=== PATIENT | male | born 1965 | race Caucasian/White ===

== ENCOUNTER 2017-11-21 13:29 | Emergency (ER) | payer SELFPAY | END 2017-11-21 14:39 | disposition home or self-care (01) | LOC: NAV ERS 13:29 | DX: F10.129 Alcohol abuse with intoxication, unspecified (principal); Z79.899 Other long term (current) drug therapy; V47.5XXA Car driver injured in collision with fixed or stationary object in traffic accident, initial encounter | CPT/HCPCS: 99283 ==

== ENCOUNTER 2018-01-26 22:14 | Emergency (ER) | payer SELFPAY ==
[2018-01-26] MEDS ORDERED: Levofloxacin 500 mg/D5W 100 ml Premix Bag ONE (22:41)
[2018-01-26] MEDS ORDERED: Piperacillin/Tazobactam 3.375 GM VIAL ONE (22:41)
[2018-01-26] MEDS ORDERED: Sodium Chloride 0.9% 100 ML ONE (22:42)
[2018-01-26 22:43] LABS: #Basophils 0.1 thou/uL (0.0-0.2); #Eosinphils 0.2 thou/uL (0.0-0.7); #Lymphocytes 2.1 thou/uL (1.20-3.40); #Monocytes 0.8 thou/uL (0.11-0.59); %Basophils 1.4 % (0.0-1.0); %Eosinophils 2.1 % (0.0-10.0); %Lymphocytes 20.8 % (21.0-51.0); %Monocytes 7.7 % (0.0-10.0); %Neutrophils 68.1 % (42.0-75.0); Hemoglobin 14.2 g/dL (14.0-18.0); Mean Corpuscular HGB CONC 33.6 g/dL (32.0-36.0); Mean Corpuscular Hemoglobin 32.2 pg (27.0-31.0); Mean Corpuscular Volume 95.7 fL (78.0-98.0); Mean Platelet Volume 6.8 fL (7.4-10.4); Platelet Count 274 thou/uL (130-400); RBC Distribution Width 12.4 % (11.5-14.5); White Blood Cell (WBC) Count 10.3 thou/uL (4.8-10.8)
[2018-01-26 22:48] LABS: Actual Bicarbonate (HCO3a) 20.4 mEq/L (22-28); Base Excess (BEa) -5.5 mEq/L (-2.0 to +3.0); pH, Arterial 7.31 (7.35-7.45)
[2018-01-26 22:49] LABS: Hemoglobin (Hb) 13.2 g/dL (14.0-18.0)
[2018-01-26 22:50] LABS: ALT (SGPT) 23 U/L (8-55); AST (SGOT) 51 U/L (5-34); Alkaline Phosphatase 111 U/L (40-150); Anion Gap 18 mmol/L (10-20); BUN (Urea Nitrogen) 16 mg/dL (8.4-25.7); Bilirubin, Total 1.6 mg/dL (0.2-1.2); CK (CPK) 76 U/L (30-200); Calc. Creatinine Clearance 0 mL/min (70-130); Calcium 9.1 mg/dL (7.8-10.44); Carbon Dioxide 17 mmol/L (22-29); Chloride 99 mmol/L (98-107); Estimated GFR-MDRD 78; Globulin 5.3 g/dL (2.4-3.5); Glucose 181 mg/dL (70-105); Potassium 4.1 mmol/L (3.5-5.1); Protein, Total 8.3 g/dL (6.0-8.3); Sodium 130 mmol/L (136-145)
[2018-01-26 22:52] LABS: CKMB 2.5 ng/mL (0-6.6); Troponin I 0.236 ng/mL (< 0.028)
--- NOTE | 2018-01-26 22:53 | RAD ---
PORTABLE AP CHEST X-RAY: 01/26/2018 HISTORY: Severe respiratory distress. Dyspnea. Diagnosis of pneumonia. COMPARISON: 01/12/2018 FINDINGS: The are bilateral perihilar alveolar opacities, which may be related to either pulmonary edema or an infectious process. There is evidence of a small left pleural effusion with a probable small right p leural effusion. The cardiac silhouette is mostly obscured, due to technique and perihilar opacities . IMPRESSION: 1. Alveolar opacities bilaterally, predominantly in a perihilar distribution, which may be related t o either pulmonary edema or an infectious process. Followup to resolution is recommended. 2. Small left pleural effusion with probable small right pleural effusion. POS: [facility]
[2018-01-26] MEDS ORDERED: Aspirin 300 MG Suppository ONE (22:56)
[2018-01-26 23:04] LABS: Bilirubin Negative (Negative); Blood, Urine Trace (Negative); Clarity Hazy (Clear); Glucose, Urine (Dipstick) Negative (Negative); Leukocyte Negative (Negative); Nitrite Negative (Negative); Protein, Urine (Dipstick) 100 mg/dL (Neg-Trace); Specific Gravity, Urine 1.015 (1.005-1.030); pH, Urine 5.5 (5.0-9.0)
[2018-01-26 23:06] LABS: Bacteria/HPF None Seen HPF (None Seen); RBC/HPF 0-3 HPF (0-3); Squamous Epithelial None Seen HPF (0-3); WBC/HPF None Seen HPF (0-3)
[2018-01-26] MEDS ORDERED: Sodium Chloride 0.9% 1,000 ML ONE (23:23)
--- NOTE | 2018-01-27 09:23 | ER ---
EMERGENCY ROOM ADDENDUM DATE OF SERVICE: 01/26/2018 Please refer to the patient's electronic medical record for further details of his visit. In summary, the patient presents via EMS with profound respiratory distress. He arrived on CPAP mask with obviously labored breathing and somnolence on exam. He was arousable to verbal and tactile stimulus. Preparations were made immediately for possible intubation, but during this time, the patient's mentation improved somewhat to the point that he was awake and alert, and able to answer questions. He indicated that he did not want to be intubated at this point, and thought that he could continue breathing on his own at least for now. He was allowed to do this, but monitored quite closely. During his stay, arterial blood gas showed adequate oxygenation with good CO2 exchange. His respiratory effort continued to improve, and his initial diaphoresis resolved. His initial tachycardia also improved. On recheck, the patient was able to speak in 3-4 word sentences with improvement in his respiratory effort. Evaluation reveals evidence of bilateral volume overload versus infectious process. The patient was covered with antibiotics. Also, his troponin was noted to be somewhat elevated and he was given rectal aspirin so as to avoid taking him off CPAP. IV fluids were given to support his tachycardia and presumed sepsis, though the rate was decreased once the patient's condition improved. I discussed this case with Dr. Steve at [facility], who accepts transfer. I elected to fly the patient via air transport due to the emergent nature of his condition. He remained in guarded condition, but is stable for transport at this time. He is mentating well, knows what year it is, and responds to questions appropriately at this point. He continues to have some respiratory distress, but is significantly improved since arrival. ADRIÁN
== END 2018-01-26 23:40 | disposition short-term general hospital (02) ==
LOC: NAV ERS 22:14
DX: A41.9 Sepsis, unspecified organism (principal); J96.90 Respiratory failure, unspecified, unspecified whether with hypoxia or hypercapnia
CPT/HCPCS: 51702; 71045; 80053; 81003; 81015; 82553; 82805; 83605; 83880; 84484; 85025; 87086; 93005; 94660; 96365; J1956; J2543; J7050

== ENCOUNTER 2018-09-21 18:31 | Emergency (ER) | payer SELFPAY ==
[~2018-09-21 18:31] MED LIST: Gadobenate Dimeglumine 529 MG/1 ML (20ML VIAL) ONE
[2018-09-21 19:27] LABS: Hemoglobin 12.2 g/dL (14.0-18.0); Mean Corpuscular HGB CONC 33.4 g/dL (32.0-36.0); Mean Corpuscular Volume 95.7 fL (78.0-98.0); Mean Platelet Volume 5.8 fL (7.4-10.4); Platelet Count 92 thou/uL (130-400); RBC Distribution Width 13.5 % (11.5-14.5); Red Blood Cell (RBC) Count 3.82 mill/uL (4.70-6.10)
[2018-09-21 19:36] LABS: ALT (SGPT) 25 U/L (8-55); AST (SGOT) 54 U/L (5-34); Albumin 3.9 g/dL (3.5-5.0); Alkaline Phosphatase 117 U/L (40-150); Anion Gap 16 mmol/L (10-20); BUN (Urea Nitrogen) 13 mg/dL (8.4-25.7); CK (CPK) 77 U/L (30-200); Calc. Creatinine Clearance 0 mL/min (70-130); Calcium 9.5 mg/dL (7.8-10.44); Carbon Dioxide 23 mmol/L (22-29); Chloride 105 mmol/L (98-107); Estimated GFR-MDRD 58; Globulin 3.9 g/dL (2.4-3.5); Glucose 100 mg/dL (70-105); Potassium 3.5 mmol/L (3.5-5.1); Protein, Total 7.8 g/dL (6.0-8.3); Sodium 140 mmol/L (136-145)
[2018-09-21 19:37] LABS: Band 1 % (5-11); CKMB 1.4 ng/mL (0-6.6); Eosinophils 5 % (0-10); Lymphocytes 23 % (21-51); MDiff Complete? YES; Monocytes 7 % (0-10); Neutrophil 64 % (42-75); Platelet Morphology Comment Appears Decreased; RBC Morphology Normal
[2018-09-21] MEDS ORDERED: Furosemide 40 MG/4 ML VIAL ONE (19:39)
--- NOTE | 2018-09-21 20:01 | RAD ---
PORTABLE CHEST: History: Chest pain Comparison: 02-20-18 FINDINGS: Heart size appears slightly enlarged. There are post op sternotomy changes. Lungs are clear of any in filtrative process. No signs of failure. IMPRESSION: Mild cardiomegaly. POS: [facility]
[2018-09-21 21:50] LABS: Troponin I 0.014 ng/mL (< 0.028)
--- NOTE | 2018-09-21 22:40 | CT ---
CT ANGIOGRAM THORAX WITH IV CONTRAST AND 3D RECONSTRUCTIONS: Date: 09-21-18 History: Dyspnea. Increased D-Dimer. Swollen legs. Comparison: None available. FINDINGS: There is suboptimal timing of the contrast bolus which limits evaluation for pulmonary emboli involvi ng the segmental and subsegmental arteries. There are no filling defects in the central pulmonary art eries but pulmonary emboli involving the segmental or subsegmental pulmonary arteries cannot be exclu ded. There is questionable filling defect in the right lower lobe pulmonary arteries, again, there is inadequate contrast opacification to determine whether filling defects are definitely present. Prominent coronary artery calcifications are present. Aortic valve replacement is noted. The heart is enlarged. Small amount of fluid is seen within the mid esophagus which could be related to gastroesophageal ref lux. There is no evidence of lymphadenopathy. Thoracic aorta is normal in caliber without evidence of an aortic dissection. Visualized upper abdomen has a normal CT appearance. IMPRESSION: 1. Suboptimal evaluation for pulmonary emboli involving the segmental or subsegmental pulmonary arter ies due to suboptimal timing of the contrast bolus. As a result, pulmonary emboli at these levels can not be excluded. 2. Thoracic aorta is normal in caliber without evidence of an aortic dissection. 3. Prominent coronary artery calcifications. 4. Cardiomegaly. POS: [facility]
== END 2018-09-21 22:20 | disposition home or self-care (01) ==
LOC: NAV ERS 18:31
DX: I11.0 Hypertensive heart disease with heart failure (principal); I50.9 Heart failure, unspecified; R60.9 Edema, unspecified; E11.9 Type 2 diabetes mellitus without complications; F41.9 Anxiety disorder, unspecified; Z79.82 Long term (current) use of aspirin; Z79.899 Other long term (current) drug therapy
CPT/HCPCS: 36415; 71045; 71275; 80053; 82550; 82553; 83880; 84484; 85025; 85379; 93005; 94760; 96374; A9577; J1940

== ENCOUNTER 2018-12-14 08:40 | Emergency (ER) | payer SELFPAY ==
[2018-12-14 09:47] LABS: ALT (SGPT) 22 U/L (8-55); AST (SGOT) 45 U/L (5-34); Albumin 3.8 g/dL (3.5-5.0); Alkaline Phosphatase 95 U/L (40-150); Anion Gap 15 mmol/L (10-20); BUN (Urea Nitrogen) 8 mg/dL (8.4-25.7); Bilirubin, Total 0.7 mg/dL (0.2-1.2); Calc. Creatinine Clearance 0 mL/min (70-130); Calcium 8.6 mg/dL (7.8-10.44); Carbon Dioxide 24 mmol/L (22-29); Chloride 104 mmol/L (98-107); Estimated GFR-MDRD 68; Globulin 3.6 g/dL (2.4-3.5); Glucose 120 mg/dL (70-105); Potassium 3.8 mmol/L (3.5-5.1); Protein, Total 7.4 g/dL (6.0-8.3); Sodium 139 mmol/L (136-145)
[2018-12-14 09:48] LABS: Alcohol Less than 10 mg/dL (Less than 10); Salicylate Less than 8.0 mg/dL (15.0-30.0)
[2018-12-14 10:04] LABS: #Basophils 0.1 thou/uL (0.0-0.2); #Eosinphils 0.5 thou/uL (0.0-0.7); #Monocytes 0.5 thou/uL (0.11-0.59); #Neutrophils 3.2 thou/uL (1.40-6.50); %Basophils 1.6 % (0.0-1.0); %Eosinophils 9.8 % (0.0-10.0); %Monocytes 9.6 % (0.0-10.0); %Neutrophils 60.1 % (42.0-75.0); Hemoglobin 12.9 g/dL (14.0-18.0); Mean Corpuscular HGB CONC 34.4 g/dL (32.0-36.0); Mean Corpuscular Hemoglobin 31.7 pg (27.0-31.0); Mean Corpuscular Volume 92.1 fL (78.0-98.0); Mean Platelet Volume 6.9 fL (7.4-10.4); Platelet Count 116 thou/uL (130-400); RBC Distribution Width 11.6 % (11.5-14.5); Red Blood Cell (RBC) Count 4.07 mill/uL (4.70-6.10); White Blood Cell (WBC) Count 5.3 thou/uL (4.8-10.8)
[2018-12-14 10:05] LABS: Anisocytosis SLIGHT = 6-15 cells (100X) (0-5/hpf); Hypochromia SLIGHT = 6-15 cells (100X) (0-5/hpf); MDiff Complete? YES; Platelet Morphology Comment Appears Adequate
[2018-12-14 10:06] LABS: Acetaminophen Less than 6.0 mcg/mL (10.0-30.0)
== END 2018-12-14 15:11 | disposition home or self-care (01) ==
LOC: NAV ERS 08:40
DX: T42.6X1A Poisoning by other antiepileptic and sedative-hypnotic drugs, accidental (unintentional), initial encounter (principal); F41.9 Anxiety disorder, unspecified; E11.9 Type 2 diabetes mellitus without complications; I10 Essential (primary) hypertension; Z87.01 Personal history of pneumonia (recurrent); Z79.82 Long term (current) use of aspirin; Z79.899 Other long term (current) drug therapy
CPT/HCPCS: 80053; 80307; 85025

== ENCOUNTER 2019-03-23 08:27 | Emergency (ER) | payer SELFPAY ==
[2019-03-23] MEDS ORDERED: Ondansetron PF 4 MG/2 ML Vial ONE ×2 (08:56→09:44)
[2019-03-23 09:05] LABS: #Basophils 0.1 thou/uL (0.0-0.2); #Eosinphils 0.5 thou/uL (0.0-0.7); #Lymphocytes 1.2 thou/uL (1.20-3.40); #Monocytes 0.6 thou/uL (0.11-0.59); #Neutrophils 3.7 thou/uL (1.40-6.50); %Basophils 2.1 % (0.0-1.0); %Eosinophils 7.7 % (0.0-10.0); %Lymphocytes 20.1 % (21.0-51.0); %Monocytes 9.1 % (0.0-10.0); Hemoglobin 14.3 g/dL (14.0-18.0); Mean Corpuscular HGB CONC 34.3 g/dL (32.0-36.0); Mean Corpuscular Hemoglobin 31.4 pg (27.0-31.0); Mean Corpuscular Volume 91.5 fL (78.0-98.0); Mean Platelet Volume 6.2 fL (7.4-10.4); Platelet Count 132 thou/uL (130-400); RBC Distribution Width 12.6 % (11.5-14.5); Red Blood Cell (RBC) Count 4.54 mill/uL (4.70-6.10); White Blood Cell (WBC) Count 6.1 thou/uL (4.8-10.8)
--- NOTE | 2019-03-23 09:15 | RAD ---
Portable chest: HISTORY: Hypertension COMPARISON: 09/21/2018 FINDINGS: Lung sebastian are clear. Heart size upper normal and stable. Postop sternotomy change again n oted. Vascularity is normal. Visualized osseous structures unremarkable. IMPRESSION: No acute finding
[2019-03-23 09:18] LABS: ALT (SGPT) 30 U/L (8-55); AST (SGOT) 49 U/L (5-34); Alkaline Phosphatase 156 U/L (40-150); Anion Gap 19 mmol/L (10-20); BUN (Urea Nitrogen) 5 mg/dL (8.4-25.7); Bilirubin, Total 0.7 mg/dL (0.2-1.2); Calc. Creatinine Clearance 0 mL/min (70-130); Calcium 9.2 mg/dL (7.8-10.44); Carbon Dioxide 21 mmol/L (22-29); Chloride 101 mmol/L (98-107); Estimated GFR-MDRD 53; Globulin 4.2 g/dL (2.4-3.5); Glucose 276 mg/dL (70-105); Magnesium 1.6 mg/dL (1.6-2.6); Protein, Total 8.2 g/dL (6.0-8.3); Sodium 137 mmol/L (136-145)
[2019-03-23] MEDS ORDERED: Sodium Chloride 0.9% 0 ML ONE (09:44)
[2019-03-23] MEDS ORDERED: Sodium Chloride 0.9% 250 ML 250 ML ONE (09:45)
== END 2019-03-23 10:41 | disposition home or self-care (01) ==
LOC: NAV ERS 08:27
DX: E86.0 Dehydration (principal); E11.65 Type 2 diabetes mellitus with hyperglycemia; I10 Essential (primary) hypertension; R11.0 Nausea; F41.9 Anxiety disorder, unspecified; Z79.82 Long term (current) use of aspirin; Z79.899 Other long term (current) drug therapy
CPT/HCPCS: 71045; 80053; 83735; 83880; 84484; 85025; 93005; 96374; 96376; J2405; J7050

== ENCOUNTER 2019-06-10 13:30 | Emergency (ER) | payer SELFPAY ==
--- NOTE | 2019-06-10 14:22 | RAD ---
EXAM: Right foot: 2 views INDICATIONS: Foot pain right great toe pain COMPARISON: None. FINDINGS: Enthesophytes from the calcaneus. Mild degenerative change at the intertarsal joints and ta rsometatarsal joints. Mild DJD at the first MTP joint. Question periosteal reaction involving the proximal phalanx of the fifth toe. This is not well evalua rosa. Recommend clinical correlation regarding pain at this site. Otherwise no acute process.. IMPRESSION: Question periosteal reaction involving proximal phalanx of fifth toe. Otherwise no acute process.
[2019-06-10 14:44] LABS: ALT (SGPT) 23 U/L (8-55); AST (SGOT) 26 U/L (5-34); Albumin 3.4 g/dL (3.5-5.0); Alkaline Phosphatase 78 U/L (40-110); Anion Gap 17 mmol/L (10-20); BUN (Urea Nitrogen) 14 mg/dL (8.4-25.7); Bilirubin, Total 1.1 mg/dL (0.2-1.2); Calc. Creatinine Clearance 0 mL/min (70-130); Calcium 8.3 mg/dL (7.8-10.44); Carbon Dioxide 18 mmol/L (22-29); Chloride 98 mmol/L (98-107); Estimated GFR-MDRD 63; Globulin 4.3 g/dL (2.4-3.5); Glucose 400 mg/dL (70-105); Hemoglobin 13.9 g/dL (14.0-18.0); Mean Corpuscular HGB CONC 33.9 g/dL (32.0-36.0); Mean Corpuscular Hemoglobin 31.8 pg (27.0-31.0); Mean Corpuscular Volume 93.8 fL (78.0-98.0); Mean Platelet Volume 7.6 fL (7.4-10.4); Platelet Count 120 thou/uL (130-400); Potassium 3.6 mmol/L (3.5-5.1); Protein, Total 7.7 g/dL (6.0-8.3); RBC Distribution Width 11.7 % (11.5-14.5); Red Blood Cell (RBC) Count 4.36 mill/uL (4.70-6.10); Sodium 129 mmol/L (136-145); White Blood Cell (WBC) Count 5.3 thou/uL (4.8-10.8)
[2019-06-10] MEDS ORDERED: Sodium Chloride 0.9% 1,000 ML ONE (14:48)
[2019-06-10 14:54] LABS: Band 3 % (5-11); Eosinophils 4 % (0-10); Lymphocytes 14 % (21-51); MDiff Complete? YES; Monocytes 2 % (0-10); Neutrophil 77 % (42-75); Platelet Morphology Comment Appears Decreased; RBC Morphology Normal
[2019-06-10 16:29] LABS: Bilirubin Negative (Negative); Blood, Urine Negative (Negative); Clarity Clear (Clear); Glucose, Urine (Dipstick) 500 mg/dL (Negative); Leukocyte Negative (Negative); Nitrite Negative (Negative); Protein, Urine (Dipstick) Negative (Neg-Trace); Urobilinogen > or = 8.0 mg/dL (Less than 2)
[2019-06-10] MEDS ORDERED: Piperacillin/Tazobactam 3.375 GM VIAL ONE (16:31)
[2019-06-10] MEDS ORDERED: Sodium Chloride 0.9% 500 ML ONE (16:57)
== END 2019-06-10 17:10 | disposition short-term general hospital (02) ==
LOC: NAV ERS 13:30
DX: E11.69 Type 2 diabetes mellitus with other specified complication (principal); L03.031 Cellulitis of right toe; E11.65 Type 2 diabetes mellitus with hyperglycemia; I10 Essential (primary) hypertension; Z87.01 Personal history of pneumonia (recurrent); Z79.82 Long term (current) use of aspirin
CPT/HCPCS: 36416; 80053; 81003; 83605; 85025; 86140; 87040; 87070; 87077; 87186; 87205; 96361; 96374; 36415-59; J2543; J3370; J7050

== ENCOUNTER 2019-09-20 17:27 | Emergency (ER) | payer SELFPAY ==
[2019-09-20] MEDS ORDERED: Ibuprofen 200 MG TAB ONE (18:05)
[2019-09-20] MEDS ORDERED: Sodium Chloride 0.9% 1,000 ML ONE ×2 (18:28→19:21)
--- NOTE | 2019-09-20 18:44 | RAD ---
2 view chest: [09/20/2019] Comparison:06/08/2019 HISTORY: Intermittent productive cough FINDINGS: Stable heart and mediastinal contours. Stable midline sternotomy wires and mild increased l inear interstitial density. No pneumothorax or pleural fluid. No focal consolidation or alveolar edema. The patient is status post mechanical valve replacement. Stable multilevel degenerative change of the imaged spine. IMPRESSION: Stable appearance of the chest.
[2019-09-20 18:45] LABS: #Basophils 0.1 thou/uL (0.0-0.2); #Eosinphils 0.1 thou/uL (0.0-0.7); #Lymphocytes 1.3 thou/uL (1.20-3.40); #Monocytes 1.5 thou/uL (0.11-0.59); #Neutrophils 7.7 thou/uL (1.40-6.50); %Basophils 0.6 % (0.0-1.0); %Lymphocytes 11.9 % (21.0-51.0); %Monocytes 14.3 % (0.0-10.0); %Neutrophils 72.3 % (42.0-75.0); Hemoglobin 13.6 g/dL (14.0-18.0); Mean Corpuscular HGB CONC 34.4 g/dL (32.0-36.0); Mean Corpuscular Hemoglobin 30.4 pg (27.0-31.0); Mean Corpuscular Volume 88.3 fL (78.0-98.0); Mean Platelet Volume 7.7 fL (7.4-10.4); Platelet Count 214 thou/uL (130-400); Red Blood Cell (RBC) Count 4.47 mill/uL (4.70-6.10); White Blood Cell (WBC) Count 10.7 thou/uL (4.8-10.8)
[2019-09-20 18:46] LABS: ALT (SGPT) 21 U/L (8-55); AST (SGOT) 34 U/L (5-34); Albumin 3.8 g/dL (3.5-5.0); Alkaline Phosphatase 92 U/L (40-110); Anion Gap 16 mmol/L (10-20); BUN (Urea Nitrogen) 12 mg/dL (8.4-25.7); Bilirubin, Total 1.2 mg/dL (0.2-1.2); Calc. Creatinine Clearance 0 mL/min (70-130); Calcium 8.3 mg/dL (7.8-10.44); Carbon Dioxide 20 mmol/L (22-29); Chloride 99 mmol/L (98-107); Estimated GFR-MDRD 64; Globulin 4.1 g/dL (2.4-3.5); Glucose 139 mg/dL (70-105); Lipase 22 U/L (8-78); Potassium 3.8 mmol/L (3.5-5.1); Protein, Total 7.9 g/dL (6.0-8.3); Sodium 131 mmol/L (136-145)
[2019-09-20] MEDS ORDERED: cefTRIAXone\\ROCEPHIN 2 GM VIAL ONE (19:21)
[2019-09-20] MEDS ORDERED: Sodium Chloride 0.9% 100 ML ONE (19:21)
[2019-09-20 20:16] LABS: Bacteria/HPF None Seen HPF (None Seen); Bilirubin Moderate (Negative); Blood, Urine Negative (Negative); Clarity Clear (Clear); Glucose, Urine (Dipstick) Negative (Negative); Leukocyte Negative (Negative); Nitrite Negative (Negative); Protein, Urine (Dipstick) 30 mg/dL (Neg-Trace); RBC/HPF 0-3 HPF (0-3); Squamous Epithelial 0-3 HPF (0-3); WBC/HPF 0-3 HPF (0-3)
[2019-09-20 21:22] LABS: Lactic Acid 0.8 mmol/L (0.5-2.2)
== END 2019-09-20 22:20 | disposition home or self-care (01) ==
LOC: NAV ERS 17:27
DX: J20.9 Acute bronchitis, unspecified (principal); E86.0 Dehydration; H10.33 Unspecified acute conjunctivitis, bilateral; I10 Essential (primary) hypertension; Z87.01 Personal history of pneumonia (recurrent); E11.9 Type 2 diabetes mellitus without complications; F41.9 Anxiety disorder, unspecified; Z79.82 Long term (current) use of aspirin; Z79.4 Long term (current) use of insulin; Z79.899 Other long term (current) drug therapy; Z87.440 Personal history of urinary (tract) infections
CPT/HCPCS: 36415; 71046; 80053; 81003; 81015; 82274; 83605; 83630; 83690; 85025; 87040; 87045; 87046; 87070; 87081; 87205; 87324; 87427; 87430; 87449; 87804; 96361; 96365; J0696; J3490; J7050

== ENCOUNTER 2020-05-01 07:17 | Emergency (ER) | payer SELFPAY ==
[2020-05-01] MEDS ORDERED: Nitroglycerin 0.4 MG TAB (25 Tab Bottle) ONE (07:36)
[2020-05-01] MEDS ORDERED: Acetaminophen 500 MG TAB ONE (07:41)
[2020-05-01] MEDS ORDERED: Morphine 4 MG/ML VIAL ONE (07:43)
[2020-05-01] MEDS ORDERED: Ondansetron PF 4 MG/2 ML Vial ONE (07:50)
[2020-05-01 08:14] LABS: ALT (SGPT) 40 U/L (8-55); AST (SGOT) 67 U/L (5-34); Albumin 3.5 g/dL (3.5-5.0); Alkaline Phosphatase 112 U/L (40-110); Anion Gap 19 mmol/L (10-20); BUN (Urea Nitrogen) 11 mg/dL (8.4-25.7); Bilirubin, Total 1.2 mg/dL (0.2-1.2); CK (CPK) 92 U/L (30-200); Calc. Creatinine Clearance 0 mL/min (70-130); Calcium 8.2 mg/dL (7.8-10.44); Carbon Dioxide 21 mmol/L (22-29); Chloride 97 mmol/L (98-107); Estimated GFR-MDRD 68; Globulin 3.5 g/dL (2.4-3.5); Glucose 265 mg/dL (70-105); Lipase 39 U/L (8-78); Potassium 3.5 mmol/L (3.5-5.1); Sodium 133 mmol/L (136-145)
[2020-05-01 08:18] LABS: #Eosinphils 0.2 thou/uL (0.0-0.7); #Lymphocytes 0.9 thou/uL (1.20-3.40); #Monocytes 0.5 thou/uL (0.11-0.59); #Neutrophils 4.5 thou/uL (1.40-6.50); %Basophils 0.8 % (0.0-1.0); %Eosinophils 2.8 % (0.0-10.0); %Lymphocytes 14.8 % (21.0-51.0); %Monocytes 7.4 % (0.0-10.0); %Neutrophils 74.2 % (42.0-75.0); Hemoglobin 13.4 g/dL (14.0-18.0); Mean Corpuscular Hemoglobin 29.9 pg (27.0-31.0); Mean Corpuscular Volume 90.4 fL (78.0-98.0); Mean Platelet Volume 7.1 fL (7.4-10.4); Platelet Count 94 thou/uL (130-400); RBC Distribution Width 12.6 % (11.5-14.5); Red Blood Cell (RBC) Count 4.49 mill/uL (4.70-6.10); White Blood Cell (WBC) Count 6.1 thou/uL (4.8-10.8)
[2020-05-01 08:19] LABS: Platelet Morphology Comment Appears Decreased
--- NOTE | 2020-05-01 08:23 | RAD ---
CHEST 1 VIEW: HISTORY: Chest pain. FINDINGS: Heart size is enlarged with postop sternotomy change. The lungs are clear of infiltrates. No signs of failure. IMPRESSION: Cardiomegaly. POS: [facility]
--- NOTE | 2020-05-01 08:58 | CT ---
EXAM: CT chest, abdomen and pelvis with IV contrast PROVIDED CLINICAL HISTORY: Chest pain FINDINGS: The heart, pericardium and great vessels demonstrate no evidence for an acute abnormality. Changes of aortic valve replacement are demonstrated. Lungs are free of significant opacity. No pleural fluid or pneumothorax apparent. No evidence for thoracic lymph node enlargement. The solid abdominal organs demonstrate no evidence for acute abnormality. Fatty infiltration of the l iver is demonstrated. No bowel dilatation, inflammatory fat stranding, free fluid or free air apparent. The major vascular structures appear normal with the exception of occasional vascular calci fication. The osseous structures demonstrate no acute abnormality. Extensive postoperative and degenerative nikki nges are seen involving the lumbar spine. IMPRESSION: No evidence for acute abnormality.
[2020-05-01] MEDS ORDERED: Iopamidol 370 76% 100 ML VIAL ONE (09:00)
[2020-05-01] MEDS ORDERED: Metoprolol Tartrate 5 MG/5 ML VIAL ONE (09:21)
== END 2020-05-01 10:31 | disposition short-term general hospital (02) ==
LOC: NAV ERS 07:17
DX: R07.9 Chest pain, unspecified (principal); R13.10 Dysphagia, unspecified; I10 Essential (primary) hypertension; E11.9 Type 2 diabetes mellitus without complications; Z79.899 Other long term (current) drug therapy; Z79.4 Long term (current) use of insulin
CPT/HCPCS: 71045; 71275; 74174; 80053; 82550; 83690; 84484; 85025; 85379; 93005; 96374; 96375; J2270; J2405; Q9967

== ENCOUNTER 2021-08-18 21:50 | Emergency (ER) | payer OTHER, SELFPAY ==
[2021-08-19 00:28] LABS: Hemoglobin 12.4 g/dL (14.0-18.0); Mean Corpuscular HGB CONC 33.8 g/dL (32.0-36.0); Mean Corpuscular Hemoglobin 33.5 pg (27.0-31.0); Mean Platelet Volume 6.9 fL (7.4-10.4); Platelet Count 122 thou/uL (130-400); RBC Distribution Width 12.1 % (11.5-14.5); Red Blood Cell (RBC) Count 3.71 mill/uL (4.70-6.10)
[2021-08-19 00:35] LABS: ALT (SGPT) 24 U/L (8-55); AST (SGOT) 54 U/L (5-34); Albumin 3.2 g/dL (3.5-5.0); Alkaline Phosphatase 80 U/L (40-110); Anion Gap 14 mmol/L (10-20); BUN (Urea Nitrogen) 21 mg/dL (8.4-25.7); Bilirubin, Total 1.6 mg/dL (0.2-1.2); Calc. Creatinine Clearance 0 mL/min (70-130); Calcium 8.2 mg/dL (7.8-10.44); Carbon Dioxide 20 mmol/L (22-29); Chloride 99 mmol/L (98-107); Globulin 4.7 g/dL (2.4-3.5); Glucose 115 mg/dL (70-105); Potassium 3.7 mmol/L (3.5-5.1); Protein, Total 7.9 g/dL (6.0-8.3); Sodium 129 mmol/L (136-145)
[2021-08-19 00:45] LABS: Bilirubin Negative (Negative); Blood, Urine Negative (Negative); Clarity Clear (Clear); Glucose, Urine (Dipstick) Negative (Negative); Ketone, Urine Negative (Negative); Leukocyte Negative (Negative); Nitrite Negative (Negative); Protein, Urine (Dipstick) 30 mg/dL (Neg-Trace); Specific Gravity, Urine 1.015 (1.005-1.030)
[2021-08-19 00:46] LABS: Mucous/LPF 1+ LPF (<2+); RBC/HPF 0-3 HPF (0-3)
[2021-08-19] MEDS ORDERED: Acetaminophen 500 MG TAB ONE (01:27)
[2021-08-19] MEDS ORDERED: Sodium Chloride 0.9% 100 ML ONE (01:37)
[2021-08-19] MEDS ORDERED: Cefepime 2 GM VIAL ONE (01:37)
[2021-08-19] MEDS ORDERED: Sodium Chloride 0.9% 250 ML 500 ML ONE (01:44)
[2021-08-19 01:49] LABS: Eosinophils 1 % (0-10); Lymphocytes 8 % (21-51); MDiff Complete? YES; Monocytes 9 % (0-10); Neutrophil 82 % (42-75); Platelet Morphology Comment Appears Decreased; RBC Morphology Normal
[2021-08-19 02:39] LABS: SARS-CoV-2 NAA Rapid Test Not Detected (NotDetected)
== END 2021-08-19 02:58 | disposition short-term general hospital (02) ==
LOC: NAV ERS 21:50
DX: M79.89 Other specified soft tissue disorders (principal); R50.9 Fever, unspecified; J02.9 Acute pharyngitis, unspecified; R05.9 Cough, unspecified; R53.83 Other fatigue; M79.661 Pain in right lower leg; M79.662 Pain in left lower leg; R53.81 Other malaise; R51.9 Headache, unspecified; R19.7 Diarrhea, unspecified; R30.0 Dysuria; I11.0 Hypertensive heart disease with heart failure; I50.9 Heart failure, unspecified; I25.2 Old myocardial infarction; E11.9 Type 2 diabetes mellitus without complications; Z20.822 Contact with and (suspected) exposure to COVID-19; Z79.4 Long term (current) use of insulin; Z79.82 Long term (current) use of aspirin; Z79.899 Other long term (current) drug therapy
CPT/HCPCS: 36415; 71045; 80053; 81003; 81015; 83605; 85025; 85379; 87040; 87804; 96365; 96367; J0692; J3370; J3490; J7050; U0002